=== PATIENT | male | born 1995 | race African-American/Black ===

== ENCOUNTER 2018-09-08 11:17 | Emergency (ER) | payer OTHER ==
[2018-09-08 11:24] VITALS: BP 119/74; PULSE 69; TEMP 98.3; BMI 22.1
--- NOTE | 2018-09-08 12:31 | PDOC ---
History of Present Illness - General Chief Complaint: Psychiatric Stated Complaint: Psychiatry Time Seen by Provider: 09/08/18 11:46 History Source: Patient Exam Limitations: No Limitations - History of Present Illness Initial Comments: 09/08/18 12:32 23-year-old male sent to the emergency room for evaluation of a written statement that he had suicidal thoughts in the past 2 weeks without a plan. Patient states he stated this, while attempting to obtain a therapist at a [facility] but due to the statement, an ambulance was called for him to be seen by a psychiatrist in an emergency room setting. Patient states he requested [facility] since he resides in [place]. Patient states when he was questioned by a staff after completing the questionnaire that he had no plan and has no intent of hurting himself or others presently. Patient states has had no previous suicidal attempts and denies any drug use except for marijuana. Patient states does not take medication for any underlying psychiatric disease but in the last 3 months has been feeling the need to speak with someone about feeling overwhelmed and depressed. Timing/Duration: gone Associated Symptoms: reports: denies symptoms Past History - Travel Traveled outside of the country in the last 30 days: No - Past Medical History Allergies/Adverse Reactions: Allergies Allergy/AdvReac Type Severity Reaction Status Date / Time No Known Allergies Allergy Verified 09/08/18 11:24 Home Medications: Ambulatory Orders NK [No Known Home Medication] 05/16/15 COPD: No Psychiatric Problems: Yes (anxiety) - Suicide/Smoking/Psychosocial Hx Smoking History: Current every day smoker Number of Cigarettes Smoked Daily: 10 Information on smoking cessation initiated: No Hx Alcohol Use: No Drug/Substance Use Hx: Yes (marijuana) Substance Use Type: Marijuana Patient Lives Alone: No Lives with/in: parents Review of Systems - Review of Systems Able to Perform ROS?: Yes Constitutional: No: Symptoms Reported HEENTM: No: Symptoms Reported Respiratory: No: Symptoms reported Cardiac (ROS): No: Symptoms Reported ABD/GI: No: Symptoms Reported : No: Symptoms Reported Musculoskeletal: No: Symptoms Reported Integumentary: No: Symptoms Reported Neurological: No: Symptoms reported Psychiatric: Yes: Anxiety, Depression. No: Sleep Pattern Change, Change in Appetite Endocrine: No: Symptoms Reported Hematologic/Lymphatic: No: Symptoms Reported *Physical Exam - Vital Signs Last Vital Signs Temp Pulse Resp BP Pulse Ox 98.3 F 69 18 119/74 100 09/08/18 11:21 09/08/18 11:21 09/08/18 11:21 09/08/18 11:21 09/08/18 11:21 - Physical Exam General Appearance: Yes: Nourished, Appropriately Dressed. No: Apparent Distress, Alcohol on Breath, Intoxicated HEENT: negative: Pale Conjunctivae Respiratory/Chest: positive: Lungs Clear, Normal Breath Sounds. negative: Respiratory Distress, Accessory Muscle Use Cardiovascular: positive: Regular Rhythm, Regular Rate. negative: Murmur Extremity: positive: Normal Inspection Integumentary: positive: Normal Color, Warm, Moist Neurologic: positive: Normal Mood/Affect (good eye contact, calm body language, appropriate verbal response to conversation), Motor Strength 5/5 (ambulatory) Medical Decision Making - Medical Decision Making 09/08/18 12:40 Chief complaint: Here for evaluation of his statement written on her questionnaire earlier today when asked does he feel suicidal in the past 2 weeks and answered yes. patient told the staff he had no plan and and has no feelings of hopelessness or homicidal thoughts presently Exam: Calm and appropriate to conversation. patient contracted for safety. Patient currently denies any homicidal or suicidal thoughts and does not feel hopeless Plan: Patient will be discharged home with mother since patient does not present to be in danger of himself or others *DC/Admit/Observation/Transfer Diagnosis at time of Disposition: Evaluation by medical service required - Discharge Dispostion Disposition: HOME Condition at time of disposition: Good - Referrals - Patient Instructions Printed Discharge Instructions: Depression (Mild to Moderate) (Alternative Therapy) Additional Instructions: At this time, I recommend contacting the facility that you have been cleared by emergency medical services. I also strongly urge if you have any symptoms of hopelessness and feeling somewhat yourself or others to return to the nearest emergency room - Post Discharge Activity
== END 2018-09-08 13:00 | disposition home or self-care (01) ==
LOC: JER 11:17
DX: Z00.00 Encounter for general adult medical examination without abnormal findings (principal)
CPT/HCPCS: 99281-25

== ENCOUNTER 2022-01-01 14:27 | Emergency (ER) | payer OTHER ==
[2022-01-01 14:40] VITALS: TEMP 98.3; BMI 21.8
[2022-01-01 18:03] LABS: BASO % 0.7 % (0-2.0); EOS % 0.4 % (0-4.5); HEMATOCRIT 39.2 % (35.4-49); HEMOGLOBIN 12.5 GM/dL (11.7-16.9); LYMPH % 42.7 % (8-40); MCH 23.6 pg (25.7-33.7); MCHC 31.8 g/dl (32.0-35.9); MEAN CELL VOLUME 74.2 fl (80-96); MEAN PLT VOLUME 10.1 fl (7.5-11.1); MONO % 10.9 % (3.8-10.2); NEUT % 45.3 % (42.8-82.8); PLATELET COUNT 157 10^3/uL (134-434); RBC 5.28 M/mm3 (4.00-5.60); RDW 13.7 % (11.9-15.9); WHITE BLOOD COUNT 5.4 K/mm3 (4.0-10.0)
[2022-01-01 18:20] LABS: BLOOD UREA NITROGEN 11.3 mg/dL (7-18); CALCIUM 9.2 mg/dL (8.5-10.1)
[2022-01-01 18:25] LABS: BILIRUBIN,TOTAL 0.4 mg/dL (0.2-1); TOT PROT 7.2 g/dl (6.4-8.2)
[2022-01-01 20:43] VITALS: BP 113/76; PULSE 75; RESP 20
== END 2022-01-01 20:25 | disposition home or self-care (01) ==
LOC: JER 14:27
DX: Z00.00 Encounter for general adult medical examination without abnormal findings (principal)
CPT/HCPCS: 36415; 80053; 85025; 93005; 93010; 99283-25

== ENCOUNTER 2022-03-12 14:08 | Emergency (ER) | payer OTHER ==
[2022-03-12 14:58] VITALS: BP 117/50; PULSE 83; RESP 18; TEMP 98.8; BMI 23.1
== END 2022-03-12 19:00 | disposition home or self-care (01) ==
LOC: JER 14:08
DX: R07.0 Pain in throat (principal)
CPT/HCPCS: 0241U-QW; 99283-25